=== PATIENT | female | born 1970 | race Caucasian/White ===

== ENCOUNTER 2016-09-19 09:59 | Emergency (ER) | payer SELFPAY ==
[~2016-09-19] VITALS: Ht 165.1 cm; Wt 80.0 kg
[2016-09-19 10:01] VITALS: BP 119/72; PULSE 91; RESP 14; TEMP 98.3; O2SAT 98
[2016-09-19] MEDS ORDERED: NAPR500T PO (13:58)
[2016-09-19] MEDS ORDERED: DIAZ5 PO (13:58)
--- NOTE | 2016-09-19 13:59 | PD ---
HPI Chief Complaint: General Weakness Time Seen by Provider: 13:53 Travel History International Travel<30 days: No Contact w/Intl Traveler<30days: No Traveled to known affect area: No History of Present Illness HPI 46-year-old woman who presents to the emergency department complaining of right shoulder pain and tingling worsening over the past several days. States it started under her right scapula is been having worsening pain in the neck and radiating down the arm. No numbness or tingling. Searing pain down the entire arm however, especially the outside. She thinks maybe a little bit weak in the siding mechanic strength that she's had trouble opening bottles. She is right handed. Starting a new job. She sleeping on a new bed since she's been visiting here for the past 2 weeks. No other new injuries or lifting or other problems. She had back problems in the past but never neck problems. She otherwise had been feeling generally well and healthy. History Past Medical History Medical History: Denies Significant Hx Social History Tobacco Use: No Allergies-Medications (Allergen,Severity, Reaction): Coded Allergies: Ceftriaxone (Verified Allergy, Severe, SEIZURE, 09/19/16) Review of Systems Except as stated in HPI: all other systems reviewed are Neg Physical Exam Narrative GENERAL: Well-appearing 46-year-old woman, no acute distress. SKIN: Warm and dry. HEAD: Atraumatic. Normocephalic. EYES: Pupils equal and round. No scleral icterus. No injection or drainage. ENT: No nasal bleeding or discharge. Mucous membranes pink and moist. NECK: Trachea midline. No JVD. CARDIOVASCULAR: Regular rate and rhythm. No murmur appreciated. RESPIRATORY: No accessory muscle use. Clear to auscultation. Breath sounds equal bilaterally. GASTROINTESTINAL: Abdomen soft, non-tender, nondistended. Hepatic and splenic margins not palpable. MUSCULOSKELETAL: No obvious deformities. Strength full and equal in the upper or lower extremities proximal distal muscle groups. Radial/shoulder/median strength is intact in the right hand. There is no subjective change in sensation in the upper extremities. She has tenderness in the right paraspinous muscles, really in the lower cervical upper thoracic spine, and in the trapezius. Data Data Last Documented VS Vital Signs Date Time Temp Pulse Resp B/P Pulse Ox O2 Delivery O2 Flow Rate FiO2 09/19/16 10:01 98.3 91 14 119/72 98 Room Air MDM Medical Decision Making Medical Screen Exam Complete: Yes Emergency Medical Condition: Yes Differential Diagnosis Strain or sprain in the neck, radiculopathy, herniated disc, thoracic disease, gallbladder disease, other Narrative Course Medical decision making Is a 46-year-old woman presents with right neck pain, subscapular pain, and searing pain down the right arm. This seems consistent with a radiculopathy. Again this is more likely from irritation of the nerve in the muscles and muscle spasm in the paraspinous muscles in the neck. I don't think she has a herniated disc. She is no evidence of fracture or bony disease. Recommend supportive treatment with anti-inflammatories and muscle relaxers. Outpatient follow-up. Return for any worsening symptoms. Diagnosis Primary Impression: Radiculopathy, cervical Additional Impression: Right shoulder pain Qualified Code: M25.511 - Acute pain of right shoulder Departure Forms: Tests/Procedures, Work Release Enter return to work date: Sep 24, 2016 Special Instructions: No lifting more than 15 pounds for 2 weeks. Additional Instructions: Take Naprosyn as prescribed. Use Valium as needed for muscle spasm. Follow-up with your primary doctor in 3-5 days if not improving. Return to the emergency department for any worsening pain, numbness or tingling , weakness, or any other new or worsening symptoms. Med/Other Pt SpecificInfo: Prescription(s) given Scripts Naproxen 500 Mg Kzc039 Mg PO BID 14 Days Ref 0 Prov:Mansoor Jarvis MD 09/19/16 Diazepam (Valium)5 Mg Tab5 Mg PO TID PRN (MUSCLE SPASM) #12 TAB Ref 0 Prov:Mansoor Jarvis MD 09/19/16 Disposition: 01 DISCHARGE HOME Condition: Stable Mansoor Jarvis MD Sep 19, 2016 13:59
[2016-09-19] MEDS ORDERED: NAPROXEN 500 MG TAB PO ONE (14:00)
[2016-09-19] MEDS ORDERED: ACETAMINOPHEN/HYDROcodone 325 MG/5 MG TAB PO ONE (14:00)
[2016-11-01] MEDS ORDERED: CYCL5TAB PO (12:28)
[2016-11-01] MEDS ORDERED: GABA100C4 PO (12:28)
[2016-11-01] MEDS ORDERED: IBUP800T23 PO (12:28)
== END 2016-09-19 14:19 | disposition home or self-care (01) ==
LOC: NETRI 09:59
DX: M54.12 Radiculopathy, cervical region (principal)
CPT/HCPCS: 99282

== ENCOUNTER 2016-10-31 19:08 | Emergency (ER) | payer SELFPAY ==
[~2016-10-31 19:08] MED LIST: DIAZ5 PO; NAPR500T PO
[2016-10-31 19:09] VITALS: BP 124/67; PULSE 94; RESP 16; TEMP 98; O2SAT 98
--- NOTE | 2016-10-31 20:07 | PD ---
HPI Chief Complaint: Injury Time Seen by Provider: 20:03 Travel History International Travel<30 days: No Contact w/Intl Traveler<30days: No Traveled to known affect area: No History of Present Illness HPI 46-year-old [id number] white female presents to emergency department a second time with complaints of right sided upper extremity pain. She states that approximately 6 weeks ago she started having pain in the right side of her neck and right shoulder pain in the arm. It was felt at that time by Dr. kiran to be a radicular pain. She was given naproxen and Valium. She has not followed up with anyone since the initial visit. She states now the pain is becoming more severe and more down in her forearm into her wrist. She states the pain is worse when she bends and moves her wrists or opens and closes her fingers. She states the pain is in the mid forearm and radiates up into the elbow, shoulder and right neck. She states that he can be severe at times but is moderate currently. This exacerbated by movement and gripping. There is no alleviating factors. She does report having a injury when a elevator door struck the right arm around the same time she started developing her pain. History Past Medical Histgory Medical History: Denies Significant Hx ?: Not Past Surgical History Surgical History: No Previous Surgery Social History Alcohol Use: Yes (socially) Tobacco Use: Yes Allergies-Medications (Allergen,Severity, Reaction): Coded Allergies: Ceftriaxone (Verified Allergy, Severe, SEIZURE, 10/31/16) Reported Meds & Prescriptions Reported Meds & Active Scripts Active Naproxen 500 Mg Tab 500 Mg PO BID 14 Days Review of Systems Except as stated in HPI: all other systems reviewed are Neg Physical Exam Narrative GENERAL: Well-developed, well-nourished in no apparent distress. Nontoxic appearing. HEAD: Normocephalic, atraumatic. EYES: Pupils equal round and reactive. Extraocular motions intact. No scleral icterus. No injection or drainage. ENT: Nose clear. Throat without erythema, tonsillar hypertrophy or exudate. Uvula midline. Airway patent. NECK: Trachea midline. Supple, right paracervical musculature pain, moves head freely. No central bony tenderness or spasm. CARDIOVASCULAR: Regular rate and rhythm without murmurs, gallops, or rubs. RESPIRATORY: Clear to auscultation. Breath sounds equal bilaterally. No wheezes , rales, or rhonchi. GASTROINTESTINAL: Abdomen soft, non-tender, nondistended. No hepato-splenomegaly , or palpable masses. No guarding. EXTREMITIES: No clubbing, cyanosis, or edema. Patient complains of tenderness down the whole arm into the forearm. She complains of pain with movement of the fingers, extension flexion of the wrist as well as the elbow and shoulder. She has intact gross median/ulnar/radial nerves. BACK: Nontender without deformity. No flank tenderness. NEUROLOGICAL: Awake, alert and oriented x 3 .Cranial nerves grossly intact. Motor and sensory grossly within normal limits. Normal speech. Data Data Last Documented VS Vital Signs Date Time Temp Pulse Resp B/P Pulse Ox O2 Delivery O2 Flow Rate FiO2 10/31/16 19:09 98.0 94 16 124/67 98 Room Air MDM Medical Screen Exam Complete: Yes Emergency Medical Condition: No Differential Diagnosis Differential diagnoses: Cervical radiculopathy, tendinitis, bursitis, contusion , RSD Narrative Course A medical screening exam was performed: At the time of evaluation the presenting medical condition was determined not to be of an emergent nature. The patient was given the option of receiving additional care, but declined. Patient was given options for additional community resources from which to obtain care. The Patient Has Been advised to seek medical attention for their presenting complaint. The patient has been advised to return to the ER at any time if an emergent condition develops. Primary Impression: Encounter for medical screening examination Condition: Carlos Da Silva Oct 31, 2016 20:07
[2016-11-01] MEDS ORDERED: GABA100C4 PO (12:28)
[2016-11-01] MEDS ORDERED: IBUP800T23 PO (12:28)
[2016-11-01] MEDS ORDERED: CYCL5TAB PO (12:28)
== END 2016-10-31 20:10 | disposition left against medical advice (07) ==
LOC: NEPB 19:08
DX: M25.511 Pain in right shoulder (principal)
CPT/HCPCS: 99281